=== PATIENT | female | born 1975 | race Two or more races ===

== ENCOUNTER 2023-04-11 08:55 | Day surgery (SDC) | payer OTHER ==
[2023-04-04 14:56] VITALS: BP 13/84
[~2023-04-11] VITALS: Ht 147.3 cm; Wt 102.3 kg
[~2023-04-11 08:55] MED LIST: IBUPROFEN800 MG PO; LEVOTHYROXINE88 MCG PO; NORCO 5-325 TA1 EACH PO; OSTERA TABLET1 EACH PO; OXYBUTYNIN CHLOR5 MG PO; VP-VITE RX TAB1 EACH PO
[2023-04-11 09:12] VITALS: BP 128/66
--- NOTE | 2023-04-11 11:03 | NUR ---
04/11/23 1103 Britney Graham TO PACU, ORAL AIRWAY IN PLACE, RESP EVEN UNLABORED. DOES NOT RESPOND TO VOICE.
[2023-04-11 12:03] VITALS: BP 132/75
--- NOTE | 2023-04-12 12:14 | OR ---
[address] [address] Signed DATE OF OPERATION: 04/11/2023 SURGEON: Rober Red DO PREOPERATIVE DIAGNOSES: 1. Abnormal uterine bleeding. 2. Submucosal fibroid. 3. Long COVID. POSTOPERATIVE DIAGNOSES: 1. Abnormal uterine bleeding. 2. Submucosal fibroid. 3. Long COVID. PROCEDURES PERFORMED: 1. Hysteroscopic myomectomy. 2. Dilation and curettage. ANESTHESIA: MAC. ESTIMATED BLOOD LOSS: 15 mL. FLUID DEFICIT: 800 mL. SPECIMEN: Submucosal fibroid and endometrial curettings. FINDINGS: Normal external genitalia with normal clitoris, urethral meatus, bilateral Leedey's and Bartholin's glands. Normal vagina and cervix. On hysteroscopy, large submucosal fibroid filling most of the uterine cavity arising from the right lateral sidewall of the endometrial cavity. This was resected completely, restoring normal uterine cavity architecture. Hemostasis at the end the procedure. COMPLICATIONS: None. Electronically Signed By: ROBER RED DO (JD) 04/12/23 1214 PATIENT NAME: SHELBI RAO OPERATIVE REPORT DATE OF : 79 REPORT #: [id number] PHYSICIAN: ROBER RED DO (JD) PCP: MAKENNA ALFARO REPORT IS CONFIDENTIAL AND NOT TO BE RELEASED WITHOUT AUTHORIZATION [address] [address] Signed INDICATIONS: Ms. Rao is a very pleasant 47-year-old female with a history of abnormal bleeding. Ultrasound demonstrated large multifibroid uterus with possible involvement of the endometrial cavity. Recommended hysteroscopy, dilation and curettage and possible myomectomy. Medical history is complicated by obesity and long COVID. She received preoperative clearance and preoperative evaluation including EKG and chest x-ray were normal. Risks, benefits, and alternatives were discussed in detail with the patient. The patient understands and wished to proceed with the procedure. TECHNIQUE: The patient was taken to the operating room where time-out was performed to confirm correct patient and correct procedure. MAC anesthesia was adequately established. The patient was prepped and draped in dorsal lithotomy position with feet in Yellofin stirrups. ICPs were on and running and no preoperative antibiotics were indicated. The patient did receive 5000 units of heparin preoperatively. A weighted speculum was placed in the vagina and the anterior lip of the cervix was grasped with an Allis clamp. The cervix was gently dilated using Hegar dilators to a #7. An operative hysteroscope was then placed in the cervical os and advanced under direct visualization into the uterine cavity. A large submucosal fibroid was noted to be arising from the right lateral sidewall of the uterine cavity, nearly completely filling the uterine cavity. Normal left tubal ostia was appreciated. A MyoSure Reach device was selected and advanced under direct visualization through the operative port and myomectomy was performed. The fibroid was able to be resected apparently in total with no residual fibroid tissue remaining, restoring normal uterine cavity. Normal right tubal ostia was then appreciated. Circumferential curettage was performed of the endometrium. The hysteroscope was withdrawn. Allis clamp was removed and the cervix and uterus were noted to be hemostatic. The patient was taken to PACU in good and stable condition. Sponge, needle, and instrument count was correct x2 at the end of the procedure. DO ZENAIDA Schwab/TERRENCE /[id number] Electronically Signed By: ROBER RED (JD), DO 04/12/23 1214 PATIENT NAME: SHELBI RAO OPERATIVE REPORT DATE OF : 79 REPORT #: [id number] PHYSICIAN: ROBER RED DO (JD) PCP: MAKENNA ALFARO REPORT IS CONFIDENTIAL AND NOT TO BE RELEASED WITHOUT AUTHORIZATION [facility] [address] [facility] [place] [address] Signed Copies: ~ Electronically Signed By: ROBER RED (JD), DO 04/12/23 1214 PATIENT NAME: SHELBI RAO OPERATIVE REPORT DATE OF : 79 REPORT #: [id number] PHYSICIAN: ROBER RED (EDWARDO) DO PCP: MAKENNA ALFARO REPORT IS CONFIDENTIAL AND NOT TO BE RELEASED WITHOUT AUTHORIZATION
--- NOTE | 2023-04-15 11:34 | PATH ---
[facility] [address] [facility] [place], [place] [address] Signed SPECIMEN(S): A FIBROID EMC SPECIMEN SOURCE: A. FIBROID EMC CLINICAL HISTORY: AUB; submucous leiomyoma of uterus; intramural leiomyoma of uterus. Hysteroscopic myomectomy, DC. FINAL PATHOLOGIC DIAGNOSIS: Fibroid EMC: - Proliferative endometrium, negative for hyperplasia or atypia. - Abundant myometrial fragments with bland features. - See comment. COMMENT: The specimen contains abundant bland myometrial fragments; this is compatible with the clinical history of submucosal leiomyoma, however, differentiating these fragments from benign myometrium is not entirely possible to the fragmented nature. Clinical correlation is requested. JVR:lizz:C2NR MICROSCOPIC EXAMINATION: Histologic sections of all submitted blocks are examined by light microscopy. These findings, together with the gross examination, support the pathologic diagnosis. GROSS DESCRIPTION: The specimen, labeled and designated "Rao, fibroid, endometrial curettings," is received in formalin and consists of irregular shaped, pink-loving fibrous tissue fragments that aggregate measure 6.0 x 5.5 x 0.8 cm. Entirely submitted in (A1-A9). JS (under the direct supervision of a pathologist) The Gross Description was prepared using a voice recognition system. The report was reviewed for accuracy; however, sound-alike word errors, addition and/or deletions may occur. If there is any question about this report, please contact Client Services. PERFORMING LABORATORY: The technical component was performed by [facility], [address] [place] [id number] (CLIA# [id number]). Professional interpretation was PATIENT NAME: SHELBI RAO PATHOLOGY DATE OF : 79 REPORT #: [id number] PHYSICIAN: [facility] PCP: MAKENNA ALFARO REPORT IS CONFIDENTIAL AND NOT TO BE RELEASED WITHOUT AUTHORIZATION [facility] [address] [facility] [place] [place] [address] Signed performed by [facility] - [facility], [address] [place] [address] [place] [address] (CLIA#: [id number]). Diagnostician: Alejandro Gavin MD Pathologist Electronically Signed 04/15/2023 Copies: ~ PATIENT NAME: SHELBI RAO PATHOLOGY DATE OF : 79 REPORT #: [id number] PHYSICIAN: [facility] PCP: MAKENNA ALFARO REPORT IS CONFIDENTIAL AND NOT TO BE RELEASED WITHOUT AUTHORIZATION
== END 2023-04-11 11:50 | disposition home or self-care (01) ==
LOC: OPS 08:55 → DS 08:55 → EDSTATUS 09:00 → OPS 09:00 → DS 09:00 → OPS 10:30
PROVIDERS: ATTEND Obstetrics & Gynecology
PROC: 0UB98ZZ Excision of Uterus, Via Natural or Artificial Opening Endoscopic (ICD-10-PCS; principal; 2023-04-11 10:30)
DX: D25.0 Submucous leiomyoma of uterus (principal); D25.1 Intramural leiomyoma of uterus; U09.9 Post COVID-19 condition, unspecified; E03.9 Hypothyroidism, unspecified; E66.9 Obesity, unspecified; Z68.42 Body mass index [BMI] 45.0-49.9, adult; Z88.0 Allergy status to penicillin; Z79.890 Hormone replacement therapy; Z79.899 Other long term (current) drug therapy
CPT/HCPCS: 00952; 71046; J1644; J2250; J2405; J2704; J7121

== ENCOUNTER 2023-09-03 06:48 | Day surgery (SDC) | payer OTHER ==
[2023-08-26 14:41] VITALS: BP 137/83
[~2023-09-03] VITALS: Ht 147.3 cm; Wt 100.0 kg
[2023-09-03 07:22] VITALS: BP 135/67
[2023-09-03] MEDS ORDERED: IBUPROFEN200 M1 PO (07:26)
--- NOTE | 2023-09-03 13:28 | NUR ---
09/03/23 1328 Daniel,Serenity 1310 PT ARRIVED TO PACU ON 6L VIA MASK, RESP EVEN AND UNLABORED. PT REACTIVE TO TACTILE STIMULI BY SLIGHTLY OPENING HER EYES, RN REORIENTING PT TO PACU. 1316 PT DENIES PAIN AND O2 MASK REMOVED. RN ENCOURAGED DEEP BREATHING. 1318 MD AT BEDSIDE, PT EASILY FALLS RIGHT BACK TO SLEEP. 1326 PT TEARFUL BUT CONTINUES TO DENY CONCERNS. PT RESTING WITH EYES CLOSED.
[2023-09-03 13:40] VITALS: BP 125/77
[2023-09-03 14:44] VITALS: BP 121/73
--- NOTE | 2023-09-03 14:45 | NUR ---
PT RESTING IN BED AND QUIÑONES REMOVED. TIP INTACT AND 9ML REMOVED FROM [place]. PT REPORTS 4/10 TOLERABLE PAIN AND NO NAUSEA. PT EATING CRACKERS AND PUDDING AND SIPPING WATER AND JUICE WITH NO CONCERNS. CALL LIGHT WITHIN REACH.
--- NOTE | 2023-09-03 15:03 | NUR ---
1340: PT ARRIVES TO UNIT VIA STRETCHER FROM PACU. DROWSY ON ARRIVAL BUT ANSWERS QUESTIONS APPROPRIATELY. VSS, RESP EVEN AND UNLABORED. LAP SITES X3, SMALL AMOUNT OF RED SHADOWING TO EACH. SCDS IN PLACE. QUIÑONES DRAINING YELLOW FLUOROSCENE URINE AT THE BEDSIDE. PT DENIES NAUSEA AND REPORTS REJI PAIN LEVEL, 3/10. POC DISCUSSED AND PT AGREEABLE. ICE WATER AND CRACKERS PROVIDED. DENIES NEEDS AND REQUESTS AT THIS TIME.
[2023-09-03 15:54] VITALS: BP 130/70
--- NOTE | 2023-09-03 16:08 | NUR ---
1540: PT AWAKE AND ALERT IN STRETCHER. VSS, RESP EVEN AND UNLABORED. CONTS TO REPORT REJI PAIN LEVEL, 4/10. DENIES NAUSEA AND REJI PO INTAKE. NO CHANGE TO LAP SITES X3. SCDS REMOVED AND IV CONVERTED TO SL. DANGLES AT THE BEDSIDE, REJI WELL. DENIES DIZZINESS AND SOB. AMULATES TO BR WITH STANDBY FROM THIS RN. STEADY GAIT. SUCCESSFUL FIRST POSTOP VOID, 200MLS. PT BACK TO ROOM TO DRESS FOR DC
--- NOTE | 2023-09-03 16:44 | NUR ---
1615: SL REMOVED WITH CATH TIP INTACT AND PRESSURE APPLIED TO SITE, WNL. DC INSTRUCTIONS PROVIDED AND DISCUSSED ORDERED, PT VOICES UNDERSTANDING AND DENIES QUESTIONS AND CONCERNS AT THIS TIME. 1620: PT WHEELED OFF OF UNIT AT THIS TIME FOR DC. TRANSFERS INTO VEHICLE INDEPENDENTLY AND APPROPRIATELY. NO PHYSICAL S/S OF DISTRESS AT THIS TIME
--- NOTE | 2023-09-06 15:33 | PATH ---
[facility] [address] [place], [place] [address] Signed SPECIMEN(S): A UTERUS, CERVIX, BILATERAL TUBES SPECIMEN SOURCE: A. UTERUS, CERVIX, BILATERAL TUBES CLINICAL HISTORY: Abnormal uterine bleeding, submucosal leiomyoma of uterus, intramural leiomyoma FINAL PATHOLOGIC DIAGNOSIS: Uterus, cervix, bilateral tubes: - Morcellated uterus with benign proliferative endometrium, negative for hyperplasia or atypia. - Benign endo and ectocervix. - Benign myometrial leiomyomas. - Benign fimbriated oviducts. JVR:agata MICROSCOPIC EXAMINATION: Histologic sections of all submitted blocks are examined by light microscopy. These findings, together with the gross examination, support the pathologic diagnosis. GROSS DESCRIPTION: The specimen, labeled and designated "Roa, A" and designated on the requisition "bilateral tubes, uterus, cervix, fibroids," is received in formalin and consists of a morcellated uterus (308 g, 15.0 x 13.5 x 5.7 cm in aggregate) with cervix (2.0 cm in length by 2.8 cm in diameter) with loving-pink smooth ectocervical mucosa and slit-shaped os (1.0 x 0.3 cm). Also received are two undesignated fimbriated fallopian tube segments (5.0 cm in length by 1.4 cm in diameter and 5.0 cm in length and ranging in diameter from 0.4 to 1.1 cm). One fallopian tube segment is arbitrarily inked blue. Both tubes are serially sectioned to reveal loving-pink to red-brown soft cut surfaces. Sectioning the cervix reveals loving-pink herringbone endocervical mucosa (endocervical canal: 2.5 cm in length by 1.0 cm in diameter). Remainder of the specimen shows loving-pink trabeculated myometrium, pink-loving serosa, loving-pink endometrium (0.2 cm in greatest thickness) and multiple fragmented white-loving whorled nodules (0.5-3.7 cm in greatest dimension). Cardiac Rehabilitation Specialist sections are submitted. PATIENT NAME: SHELBI RAO PATHOLOGY DATE OF : 79 REPORT #: [id number] PHYSICIAN: [employer] [facility] PCP: MAKENNA ALFARO REPORT IS CONFIDENTIAL AND NOT TO BE RELEASED WITHOUT AUTHORIZATION [facility] [address] [place], [place] [address] Signed Cassette Summary: (A1-A2) fallopian tubes (A3) cervix (A4) endomyometrium (A5-A8) nodules AC (under the direct supervision of a pathologist) The Gross Description was prepared using a voice recognition system. The report was reviewed for accuracy; however, sound-alike word errors, addition and/or deletions may occur. If there is any question about this report, please contact Client Services. PERFORMING LABORATORY: Technical component was performed by [email or web address], [address] [place] [id number] (CLIA# [id number]). Professional interpretation was performed by [facility] - [facility], [address] [place] [address], [place] [address] (CLIA#: [id number]). Diagnostician: Alejandro Gavin MD Pathologist Electronically Signed 09/06/2023 Copies: ~ PATIENT NAME: SHELBI RAO PATHOLOGY DATE OF : 79 REPORT #: [id number] PHYSICIAN: [facility] PCP: MAKENNA ALFARO REPORT IS CONFIDENTIAL AND NOT TO BE RELEASED WITHOUT AUTHORIZATION
--- NOTE | 2023-09-08 12:55 | OR ---
[facility] [address] [place] [address] [place], [place] [address] Signed DATE OF OPERATION: 09/03/2023 SURGEON: Rober Red DO PREOPERATIVE DIAGNOSES: 1. Abnormal uterine bleeding. 2. Fibroid uterus. 3. Morbid obesity. POSTOPERATIVE DIAGNOSES: 1. Abnormal uterine bleeding. 2. Large fibroid uterus. 3. Morbid obesity. PROCEDURES PERFORMED: 1. Total laparoscopic hysterectomy of large uterus. 2. Bilateral salpingectomy. 3. Cystoscopy. 4. ExCITE technique with contained morcellation. MANAGER CREATIVE: Valery Moore MD. ANESTHESIA: General. ESTIMATED BLOOD LOSS: 100 mL. SPECIMENS: Uterus with fibroids, cervix, bilateral fallopian tubes. DRAINS: Matthews to gravity. FINDINGS: Normal external genitalia with normal clitoris, urethral meatus, bilateral [place]'s and Bartholin's glands. Normal vagina and cervix. On laparoscopy, large multifibroid uterus filling most of the pelvis. Normal tubes and ovaries bilaterally. Excellent apical support and hemostasis at the end the procedure. On cystoscopy, normal bladder Electronically Signed By: ROBER RED DO (JD) 09/08/23 1255 PATIENT NAME: SHELBI RAO OPERATIVE REPORT DATE OF : 79 REPORT #: [id number] PHYSICIAN: ROBER RED DO (JD) PCP: MAKENNA ALFARO REPORT IS CONFIDENTIAL AND NOT TO BE RELEASED WITHOUT AUTHORIZATION [facility] [address] [place], [place] [address] Signed with bilateral ureteral jets. There was oozing vessel of the rectus that was suture ligated and hemostatic at the end the procedure. COMPLICATIONS: None. INDICATIONS: Ms. Rao is a very pleasant 47-year-old female with abnormal uterine bleeding, large fibroid uterus. She had failed conservative therapy. Discussed definitive treatment with total laparoscopic hysterectomy, bilateral salpingectomy, and cystoscopy. Risks, benefits, and alternatives were discussed in detail with the patient. The patient understands and wished to proceed with the procedure. TECHNIQUE: The patient was taken to the operating room where a time-out was performed to confirm correct patient and correct procedure. General anesthesia was adequately established. The patient was prepped and draped in the dorsal lithotomy position with feet in Yellofin stirrups. ICPs were on and running and the patient received Ancef 3 g as well as heparin 5000 units preoperatively. ICPs were on and running. A Matthews catheter was inserted. A weighted speculum was placed in the vagina and the anterior lip of the cervix was grasped with an Allis clamp. The cervix was serially dilated using Hegar dilators and a VCare uterine manipulator was placed without difficulty. Surgeon's gloves were changed. Attention was turned to the abdomen. Approximately 2 cm below the umbilicus, a curvilinear incision was made with an 11 blade after infiltration with 0.25% Marcaine. The fascia was grasped, elevated, and entered sharply. The edges of the fascia were suture ligated with 0 Vicryl and the peritoneum was grasped with hemostats, elevated and incised sharply. An S retractor was placed and a Victor Manuel operative port was placed. Pneumoperitoneum was established. Survey of abdomen and pelvis was performed that demonstrates a very large multifibroid uterus filling nearly the entire pelvis. 5 mm assist port was placed in the left lower quadrant on the left and an 8 mm expanding port was placed in the right lower quadrant, both under direct visualization, both without difficulty. Attention was turned to the right adnexa. The fallopian tube was grasped, elevated and divided along the mesosalpinx and amputated at the cornu. The right utero-ovarian ligament was fulgurated and divided with excellent hemostasis. The right round ligament was fulgurated and divided and the leaves of the broad ligament were developed. The anterior leaf was divided down to the anterior edge of the vaginal cup. The posterior edge was dissected towards the uterosacral ligament, however, this was unable to be well visualized due to the large fibroid uterus. The uterine vessels were identified, fulgurated and divided with excellent hemostasis. The process was repeated on the left side without difficulty including division of the fallopian tube from the mesosalpinx and divided at the cornu. The left uteroovarian ligament was fulgurated and divided with excellent hemostasis. The left round ligament Electronically Signed By: ROBER GALICIA) DO ELEN 09/08/23 1255 PATIENT NAME: SHELBI RAO OPERATIVE REPORT DATE OF : 79 REPORT #: [id number] PHYSICIAN: ROBER RED DO (JD) PCP: MAKENNA ALFARO REPORT IS CONFIDENTIAL AND NOT TO BE RELEASED WITHOUT AUTHORIZATION [address] [place] [address] Signed was fulgurated, divided and the leaves of the broad ligament were developed. The anterior leaf was developed across the anterior edge of the vaginal cup and the bladder was pushed well below. Again, the posterior leaf of the broad ligament was somewhat difficult to see near the uterosacral ligament. Unfortunately, the patient has significant retroperitoneal adipose and the ureter unable to obviously be seen through the peritoneum. The uterus was elevated and the posterior peritoneum was able to be identified and divided to the angle of the uterosacral ligament across the posterior edge of the vaginal cup. The left uterine vessels were fulgurated and divided with excellent hemostasis. Colpotomy was then performed using Sonicision device. The uterus was determined to be well too large to attempt to deliver vaginally and decision was made to proceed with ExCITE technique. The uterus was placed into a large laparoscopic bag which was brought through the umbilical incision. Edge of the fascia was divided to extend the incision. Brisk bleeding from the peritoneal edge or the rectus was identified. This was somewhat difficult to identify and make hemostasis initially due to the patient's body habitus. The infraumbilical incision was increased in size and the fascial incision had to be opened wider to provide enough visualization. The vessel was identified, clamped with right angle and suture ligated with excellent hemostasis. Small amount of oozing was noted along the rectus and this was fulgurated using judicious use of Bovie electrocautery and Alyssia was then placed. Attention was then turned to the ExCITE technique. The bag was brought through the umbilical trocar and Vladimir O retractor was then used to provide retraction. The uterus was excised in a contained extra morcellation manner using an 11 blade without difficulty. The specimen was then sent to pathology for further evaluation. The operative laparoscopic bag and the Vladimir O were removed and the rectus continued to be hemostatic. Pneumoperitoneum was reestablished and attention was turned to colpotomy closure. The colpotomy was closed using V-Loc suture with Endostitch device in a running nonlocked manner with careful attention to incorporate the uterosacral ligaments bilaterally and to incorporate the vaginal epithelium with each bite. Excellent apical support and hemostasis was appreciated. The pelvis was irrigated, found to be hemostatic. Tisseel was applied to the dissection area again with excellent hemostasis appreciated. The pneumoperitoneum was reduced. Trocars were removed. The rectus was once again examined and found to be hemostatic. The fascia was reapproximated using 0 Vicryl in a running nonlocked manner and stay sutures were used to provide reinforcement of the fascial incision. Subcu infraumbilically was closed in several layers and the skin was reapproximated using 4-0 Monocryl. Attention was then turned to cystoscopy. The Matthews catheter was removed and a 70-degree cystoscope was placed into the urethral meatus and advanced under direct visualization to the bladder. Survey of the bladder demonstrates normal bladder dome and bilateral ureteral jets. The bladder was drained. Matthews catheter was reinserted. The patient was then taken to PACU in good and stable condition. Electronically Signed By: ROBER GALICIA) DO ELEN 09/08/23 1255 PATIENT NAME: SHELBI RAO OPERATIVE REPORT DATE OF : 79 REPORT #: [id number] PHYSICIAN: ROBER RED DO (JD) PCP: MAKENNA ALFARO REPORT IS CONFIDENTIAL AND NOT TO BE RELEASED WITHOUT AUTHORIZATION [facility] [address] [place] [address] Signed Sponge, needle, and instrument count was correct x2 at the end of procedure. Dr. Moore was present and participated in all portions of the procedure. Rober Red DO JBLANQUITA/MODL /[id number] Copies: ~ Electronically Signed By: ORBER RED DO (JD) 09/08/23 1255 PATIENT NAME: SHELBI RAO OPERATIVE REPORT DATE OF : 79 REPORT #: [id number] PHYSICIAN: ROBER RED DO (JD) PCP: MAKENNA ALFARO REPORT IS CONFIDENTIAL AND NOT TO BE RELEASED WITHOUT AUTHORIZATION
== END 2023-09-03 16:20 | disposition home or self-care (01) ==
LOC: DS 06:48
PROVIDERS: ATTEND Obstetrics & Gynecology
PROC: 0UT94ZZ Resection of Uterus, Percutaneous Endoscopic Approach (ICD-10-PCS; principal; 2023-09-03 09:15)
DX: D25.9 Leiomyoma of uterus, unspecified (principal); N93.9 Abnormal uterine and vaginal bleeding, unspecified; E66.01 Morbid (severe) obesity due to excess calories; E03.9 Hypothyroidism, unspecified; Z88.0 Allergy status to penicillin; Z68.42 Body mass index [BMI] 45.0-49.9, adult
CPT/HCPCS: 00840; J0131; J0690; J1100; J1644; J1885; J2250; J2405; J2704; J3490; J7121